=== PATIENT | female | born 2000 | race Caucasian/White ===

== ENCOUNTER 2018-07-16 19:57 | Emergency (ER) | payer OTHER ==
--- NOTE | 2018-07-16 20:12 | EDPHY ---
H & P Stated Complaint: etoh-ARC hold Time Seen by Provider: 07/16/18 20:08 HPI/ROS: CHIEF COMPLAINT: Intoxication HISTORY OF PRESENT ILLNESS: Patient is a 18-year-old female who presents via EMS and police for intoxication. She is covered in vomit. Friends neck 0 ingestants. She has stable vital signs but is somnolecent. Severity: Severe Modifying factors: None REVIEW OF SYSTEMS: Unable to obtain secondary to condition Physical Exam General Appearance: WD/WN, vomit on clothing, obtunded (But arousable with painful stimulation) EENT: PERRL/EOMI, normal ENT inspection, TMs normal, pharynx normal Neck: non-tender, full range of motion, supple, normal inspection Respiratory: chest non-tender, lungs clear, normal breath sounds Cardiac/Chest: normal peripheral pulses, regular rate, rhythm, P Peripheral Pulses: 2+: carotid (R), carotid (L), femoral (R), femoral (L), dorsalis-pedis (R), dorsalis-pedis (L) Abdomen: normal bowel sounds, non-tender, soft Extremities: normal range of motion, non-tender, normal inspection, normal capillary refill Neurological: calm, 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 No: alert (Somnolent) Appearance: appropriate appearance, appropriate insight, neat, denies illness Behavior/Eye Contact/Speech: cooperative, decreased rate of speech Thoughts/Hallucinations: normal thought pattern, no apparent hallucination Skin: normal color, warm/dry Source: Patient Exam Limitations: No limitations - Personal History LMP (Females 10-55): Unknown Current Tetanus Diphtheria and Acellular Pertussis (TDAP): Unsure - Medical/Surgical History Hx Asthma: No Hx Chronic Respiratory Disease: No Hx Diabetes: No Hx Cardiac Disease: No Hx Renal Disease: No Hx Cirrhosis: No Hx Alcoholism: No Hx HIV/AIDS: No - Family History Significant Family History: No pertinent family hx - Social History Smoking Status: Unknown if ever smoked Alcohol Use: Occasionally Constitutional: Initial Vital Signs Temperature (C) 36.6 C 07/16/18 20:03 Heart Rate 88 07/16/18 20:03 Respiratory Rate 16 07/16/18 20:03 Blood Pressure 91/75 L 07/16/18 20:03 O2 Sat (%) 95 07/16/18 20:03 O2 Delivery Mode Room Air Allergies/Adverse Reactions: Unable to Assess Allergy (Unverified 07/16/18 20:03) Home Medications: Medication Instructions Recorded Unobtainable 07/16/18 Medical Decision Making ED Course/Re-evaluation: 10:30 p.m. the patient is increasingly sober. She is ambulatory. Her boyfriend is here to pick her up. Will discharge to his care. She denies any pain and declines further workup or testing. Differential Diagnosis: Partial list of the Differential diagnosis considered include but were not limited to; intoxication, polysubstance abuse and although unlikely based on the history and physical exam, I also considered head injury, infection. Departure - Departure Disposition: Home, Routine, Self-Care Clinical Impression: Alcoholic intoxication Condition: Fair Instructions: Alcohol Intoxication (ED) Referrals: Patient,NotPresent [Unknown] - As per Instructions JEIMY Simon,. [Clinic] - As per Instructions
[2018-07-16 22:54] VITALS: BP 110/66
== END 2018-07-16 22:54 | disposition home or self-care (01) ==
DX: F10.920 Alcohol use, unspecified with intoxication, uncomplicated (principal); Y90.9 Presence of alcohol in blood, level not specified